=== PATIENT | female | born 1940 | race Asian ===

== ENCOUNTER 2021-04-23 12:02 | Observation (INO) | payer MEDICARE, OTHER ==
[2021-04-23] MEDS ORDERED: COZAAR 50MG50 MG/TAB PO (13:00)
[2021-04-23] MEDS ORDERED: JARDIANCE10 MG PO (13:00)
[2021-04-23] MEDS ORDERED: ZOLOFT 50MG50 MG PO (13:01)
[2021-04-23] MEDS ORDERED: ZOCOR40 M1 PO (13:01)
[2021-04-23] MEDS ORDERED: LEVOFLOXACIN500 M1 PO (13:01)
[2021-04-23 13:32] LABS: BASO # 0.04 (0.02-0.10); HEMATOCRIT 41.2 % (37.0-47.0); HEMOGLOBIN 13.1 g/dL (12.5-16.0); LYMPH# 0.63 (1.50-4.00); MEAN CELL VOLUME 92 fl (78-100); MEAN CORPUSCULAR HEMOGLOBIN 29 pg (27-31); MEAN CORPUSCULAR HGB CONC 32 g/dL (33-37); MEAN PLATELET VOLUME 9.9 fl (7.4-10.4); MONO # 0.91 (0.20-0.80); NEU # 9.42 (1.40-6.50); PLATELET COUNT 145 K/mm3 (130-400); RED BLOOD COUNT 4.46 M/mm3 (4.10-5.30); RED CELL DISTRIBUTION WIDTH 12.1 % (11.5-14.5)
[2021-04-23 13:41] LABS: ALBUMIN 3.9 g/dL (3.4-4.8); POTASSIUM 3.8 mmol/L (3.5-5.1)
[2021-04-23 13:42] LABS: URINE APPEARANCE HAZY; URINE COLOR YELLOW
[2021-04-23 13:42] LABS: CALCIUM 8.6 mg/dL (8.3-10.5)
[2021-04-23 13:43] LABS: URINE BILIRUBIN 1+ (NEGATIVE); URINE KETONE NEGATIVE (NEGATIVE); URINE PROTEIN(semi-quant) TRACE mg/dL (NEGATIVE); URINE UROBILINOGEN NORMAL (NORMAL)
[2021-04-23 13:43] LABS: TOTAL PROTEIN 6.6 g/dL (6.2-8.1)
[2021-04-23 13:44] LABS: URINE BLOOD TRACE (NEGATIVE); URINE LEUKOCYTE ESTERASE TRACE (NEGATIVE); URINE MUCUS PRESENT (NOT PRESENT); URINE NITRATE NEGATIVE (NEGATIVE)
[2021-04-23 13:45] LABS: TOTAL BILIRUBIN 0.8 mg/dL (0.2-1.2)
[2021-04-23 21:03] VITALS: BP 114/82
[2021-04-24 06:19] VITALS: BP 136/55
[2021-04-24 09:51] VITALS: BP 118/67
[2021-04-24 14:06] VITALS: BP 110/59
== END 2021-04-24 15:15 | disposition home or self-care (01) ==
LOC: ED 12:02 → MED/SURG 20:18
PROVIDERS: ADMIT Family Medicine
DX: K56.41 Fecal impaction (principal); R33.9 Retention of urine, unspecified; K64.4 Residual hemorrhoidal skin tags; A31.0 Pulmonary mycobacterial infection; E11.9 Type 2 diabetes mellitus without complications; I10 Essential (primary) hypertension; E78.5 Hyperlipidemia, unspecified; Z85.828 Personal history of other malignant neoplasm of skin; Z79.2 Long term (current) use of antibiotics; Z79.84 Long term (current) use of oral hypoglycemic drugs; Z79.899 Other long term (current) drug therapy
CPT/HCPCS: G0378; J3010

== ENCOUNTER → 2021-06-19 | Outpatient (CLI) | payer MEDICARE, OTHER ==
[~2021-06-19] MED LIST: COZAAR 50MG50 MG/TAB PO; JARDIANCE10 MG PO; LEVOFLOXACIN500 M1 PO; ZOCOR40 M1 PO; ZOLOFT 50MG50 MG PO
== END ==
LOC: AMSURD 08:54
DX: I44.0 Atrioventricular block, first degree (principal)

== ENCOUNTER → 2021-07-04 | Outpatient (CLI) | payer MEDICARE, OTHER | LOC: AMSURD 16:33 | DX: I49.3 Ventricular premature depolarization (principal) ==

== ENCOUNTER → 2021-07-06 | Outpatient (CLI) | payer MEDICARE, OTHER ==
[2021-07-06 17:19] LABS: BASO # 0.05 (0.02-0.10); EOS # 0.13 (0.04-0.40); EOS % 2.6 % (1.0-5.0); HEMATOCRIT 42.5 % (37.0-47.0); HEMOGLOBIN 13.2 g/dL (12.5-16.0); LYMPH# 2.02 (1.50-4.00); MEAN CELL VOLUME 95 fl (78-100); MEAN CORPUSCULAR HEMOGLOBIN 30 pg (27-31); MEAN CORPUSCULAR HGB CONC 31 g/dL (33-37); MEAN PLATELET VOLUME 10.6 fl (7.4-10.4); MONO # 0.39 (0.20-0.80); NEU # 2.37 (1.40-6.50); PLATELET COUNT 161 K/mm3 (130-400); RED BLOOD COUNT 4.46 M/mm3 (4.10-5.30); RED CELL DISTRIBUTION WIDTH 12.3 % (11.5-14.5)
[2021-07-06 17:23] LABS: ALBUMIN 3.9 g/dL (3.4-4.8)
[2021-07-06 17:24] LABS: POTASSIUM 3.7 mmol/L (3.5-5.1)
[2021-07-06 17:25] LABS: CALCIUM 9.1 mg/dL (8.3-10.5)
[2021-07-06 17:26] LABS: TOTAL PROTEIN 6.7 g/dL (6.2-8.1)
[2021-07-06 17:28] LABS: TOTAL BILIRUBIN 0.2 mg/dL (0.2-1.2)
[2021-07-06 17:32] LABS: MAGNESIUM 2.24 mg/dL (1.60-2.60)
== END ==
LOC: LAB 16:57
PROVIDERS: Internal Medicine
DX: E11.9 Type 2 diabetes mellitus without complications (principal); I10 Essential (primary) hypertension

== ENCOUNTER → 2021-07-07 | Outpatient (CLI) | payer MEDICARE, OTHER | LOC: RAD 12:45 | DX: I49.3 Ventricular premature depolarization (principal); I70.0 Atherosclerosis of aorta ==

== ENCOUNTER → 2021-08-01 | Outpatient (CLI) | payer MEDICARE, OTHER | LOC: CARDREHAB 08:01 | DX: G47.19 Other hypersomnia (principal) | CPT/HCPCS: G0399 ==

== ENCOUNTER → 2021-08-03 | Outpatient (CLI) | payer MEDICARE, OTHER | LOC: LAB 10:03 | DX: J47.9 Bronchiectasis, uncomplicated (principal) ==

== ENCOUNTER → 2021-09-29 | Outpatient (CLI) | payer MEDICARE, OTHER | LOC: LAB 08:49 | DX: J47.9 Bronchiectasis, uncomplicated (principal) ==

== ENCOUNTER → 2021-11-10 | Outpatient (CLI) | payer MEDICARE, OTHER ==
[~2021-11-10] MED LIST changes: +CEPHALEXIN500 M1 PO
[2021-11-10 15:48] LABS: URINE APPEARANCE HAZY; URINE COLOR YELLOW; URINE PROTEIN(semi-quant) 1+ (NEGATIVE)
[2021-11-10 15:49] LABS: URINE BILIRUBIN NEGATIVE (NEGATIVE); URINE BLOOD NEGATIVE (NEGATIVE); URINE KETONE NEGATIVE (NEGATIVE); URINE LEUKOCYTE ESTERASE TRACE (NEGATIVE); URINE NITRATE POSITIVE (NEGATIVE); URINE UROBILINOGEN NORMAL (NORMAL)
== END ==
LOC: LAB 14:28
PROVIDERS: Internal Medicine
DX: N39.0 Urinary tract infection, site not specified (principal)

== ENCOUNTER 2021-11-13 16:20 | Emergency (ER) | payer MEDICARE, OTHER ==
[~2021-11-13] VITALS: Ht 149.9 cm; Wt 51.2 kg
[~2021-11-13 16:20] MED LIST changes: -CEPHALEXIN500 M1 PO
[2021-11-13 17:18] LABS: BASO # 0.04 K/mm3 (0.02-0.10); EOS # 0.07 K/mm3 (0.04-0.40); EOS % 1.2 % (1.0-5.0); HEMATOCRIT 44.6 % (37.0-47.0); HEMOGLOBIN 14.4 g/dL (12.5-16.0); LYMPH# 2.72 K/mm3 (1.50-4.00); MEAN CELL VOLUME 92 fl (78-100); MEAN CORPUSCULAR HEMOGLOBIN 30 pg (27-31); MEAN CORPUSCULAR HGB CONC 32 g/dL (33-37); MEAN PLATELET VOLUME 10.7 fl (7.4-10.4); MONO # 0.32 K/mm3 (0.20-0.80); PLATELET COUNT 178 K/mm3 (130-400); RED BLOOD COUNT 4.84 M/mm3 (4.10-5.30); RED CELL DISTRIBUTION WIDTH 12.6 % (11.5-14.5); WHITE BLOOD COUNT 6.1 K/mm3 (4.8-10.8)
[2021-11-13 18:09] LABS: POTASSIUM 3.5 mmol/L (3.5-5.1)
[2021-11-13 18:10] LABS: CALCIUM 8.8 mg/dL (8.3-10.5)
[2021-11-13] MEDS ORDERED: CEPHALEXIN500 M1 PO (20:44)
[2021-11-13 21:01] VITALS: BP 146/75
== END 2021-11-13 21:01 | disposition home or self-care (01) ==
LOC: ED 16:20
PROVIDERS: Nurse Practitioner
DX: N39.0 Urinary tract infection, site not specified (principal); T36.8X5A Adverse effect of other systemic antibiotics, initial encounter; E11.9 Type 2 diabetes mellitus without complications; F32.A Depression, unspecified; F41.3 Other mixed anxiety disorders; Z79.899 Other long term (current) drug therapy
CPT/HCPCS: J0171; J0696; J1200; J2930; J3490; J7030

== ENCOUNTER → 2021-11-30 | Outpatient (CLI) | payer MEDICARE, OTHER ==
[~2021-11-30] MED LIST changes: +CEPHALEXIN500 M1 PO
[2021-11-30 09:42] LABS: BASO # 0.05 K/mm3 (0.02-0.10); EOS # 0.08 K/mm3 (0.04-0.40); EOS % 1.2 % (1.0-5.0); HEMATOCRIT 42.6 % (37.0-47.0); HEMOGLOBIN 13.7 g/dL (12.5-16.0); LYMPH# 1.49 K/mm3 (1.50-4.00); MEAN CELL VOLUME 94 fl (78-100); MEAN CORPUSCULAR HEMOGLOBIN 30 pg (27-31); MEAN CORPUSCULAR HGB CONC 32 g/dL (33-37); MEAN PLATELET VOLUME 10.5 fl (7.4-10.4); MONO # 0.51 K/mm3 (0.20-0.80); NEU # 4.27 K/mm3 (1.40-6.50); PLATELET COUNT 149 K/mm3 (130-400); RED BLOOD COUNT 4.54 M/mm3 (4.10-5.30); RED CELL DISTRIBUTION WIDTH 12.5 % (11.5-14.5); WHITE BLOOD COUNT 6.4 K/mm3 (4.8-10.8)
[2021-11-30 09:47] LABS: ALBUMIN 3.9 g/dL (3.4-4.8); POTASSIUM 4.5 mmol/L (3.5-5.1)
[2021-11-30 09:48] LABS: CALCIUM 9.3 mg/dL (8.3-10.5)
[2021-11-30 09:50] LABS: TOTAL PROTEIN 6.8 g/dL (6.2-8.1)
[2021-11-30 09:51] LABS: TOTAL BILIRUBIN 0.3 mg/dL (0.2-1.2)
[2021-11-30 10:38] LABS: URINE APPEARANCE HAZY; URINE COLOR YELLOW; URINE GLUCOSE 50 mg/dL (NEGATIVE); URINE PROTEIN(semi-quant) TRACE (NEGATIVE)
[2021-11-30 10:39] LABS: URINE BILIRUBIN NEGATIVE (NEGATIVE); URINE BLOOD TRACE (NEGATIVE); URINE KETONE NEGATIVE (NEGATIVE); URINE LEUKOCYTE ESTERASE TRACE (NEGATIVE); URINE NITRATE NEGATIVE (NEGATIVE); URINE UROBILINOGEN NORMAL (NORMAL)
[2021-11-30 10:40] LABS: URINE MUCUS PRESENT (NOT PRESENT)
[2021-11-30 10:52] LABS: ERYTHROCYTE SEDIMENTATION RATE 4 mm/hr (0-30)
== END ==
LOC: LAB 09:00
PROVIDERS: Internal Medicine
DX: E11.9 Type 2 diabetes mellitus without complications (principal); E78.2 Mixed hyperlipidemia; N39.0 Urinary tract infection, site not specified; J47.9 Bronchiectasis, uncomplicated; A31.0 Pulmonary mycobacterial infection; I49.3 Ventricular premature depolarization; I10 Essential (primary) hypertension; M85.80 Other specified disorders of bone density and structure, unspecified site; G47.33 Obstructive sleep apnea (adult) (pediatric)

== ENCOUNTER → 2021-12-06 | Outpatient (CLI) | payer MEDICARE, OTHER | LOC: MAMMO 15:58 | DX: M81.0 Age-related osteoporosis without current pathological fracture (principal) ==

== ENCOUNTER → 2021-12-26 | Outpatient (CLI) | payer MEDICARE, OTHER | LOC: RAD 10:25 | DX: M47.816 Spondylosis without myelopathy or radiculopathy, lumbar region (principal); M47.815 Spondylosis without myelopathy or radiculopathy, thoracolumbar region; M40.46 Postural lordosis, lumbar region; M19.90 Unspecified osteoarthritis, unspecified site; G95.19 Other vascular myelopathies ==

== ENCOUNTER → 2022-03-02 | Outpatient (CLI) | payer MEDICARE, OTHER ==
[2022-03-02 10:06] LABS: BASO # 0.06 K/mm3 (0.02-0.10); EOS # 0.22 K/mm3 (0.04-0.40); EOS % 3.7 % (1.0-5.0); HEMATOCRIT 42.6 % (37.0-47.0); HEMOGLOBIN 13.6 g/dL (12.5-16.0); LYMPH# 2.14 K/mm3 (1.50-4.00); MEAN CELL VOLUME 95 fl (78-100); MEAN CORPUSCULAR HEMOGLOBIN 30 pg (27-31); MEAN CORPUSCULAR HGB CONC 32 g/dL (33-37); MEAN PLATELET VOLUME 10.3 fl (7.4-10.4); MONO # 0.53 K/mm3 (0.20-0.80); NEU # 2.91 K/mm3 (1.40-6.50); PLATELET COUNT 156 K/mm3 (130-400); RED CELL DISTRIBUTION WIDTH 12.5 % (11.5-14.5); WHITE BLOOD COUNT 5.9 K/mm3 (4.8-10.8)
[2022-03-02 10:18] LABS: ALBUMIN 4.2 g/dL (3.4-4.8); POTASSIUM 4.5 mmol/L (3.5-5.1)
[2022-03-02 10:19] LABS: CALCIUM 9.6 mg/dL (8.3-10.5)
[2022-03-02 10:21] LABS: TOTAL PROTEIN 7.1 g/dL (6.2-8.1)
[2022-03-02 10:23] LABS: TOTAL BILIRUBIN 0.3 mg/dL (0.2-1.2)
== END ==
LOC: LAB 09:50
PROVIDERS: Internal Medicine
DX: E11.9 Type 2 diabetes mellitus without complications (principal); E78.2 Mixed hyperlipidemia; J47.9 Bronchiectasis, uncomplicated; A31.0 Pulmonary mycobacterial infection; I49.3 Ventricular premature depolarization; N39.0 Urinary tract infection, site not specified; I10 Essential (primary) hypertension; M85.80 Other specified disorders of bone density and structure, unspecified site; G47.33 Obstructive sleep apnea (adult) (pediatric)

== ENCOUNTER → 2022-03-28 | Outpatient (CLI) | payer MEDICARE, OTHER | LOC: LAB 11:22 | DX: J47.9 Bronchiectasis, uncomplicated (principal) ==

== ENCOUNTER → 2022-03-29 | Outpatient (CLI) | payer MEDICARE, OTHER ==
[2022-04-04 14:42] LABS: GRAM STAIN AMS
== END ==
LOC: LAB 13:12
PROVIDERS: Internal Medicine
DX: J47.9 Bronchiectasis, uncomplicated (principal)

== ENCOUNTER → 2022-03-30 | Outpatient (CLI) | payer MEDICARE, OTHER | LOC: LAB 16:06 | DX: J47.9 Bronchiectasis, uncomplicated (principal) ==

== ENCOUNTER → 2022-08-07 | Outpatient (CLI) | payer MEDICARE, OTHER ==
[2022-08-07 16:17] LABS: BASO # 0.06 K/mm3 (0.02-0.10); EOS # 0.27 K/mm3 (0.04-0.40); EOS % 4.1 % (1.0-5.0); HEMATOCRIT 41.9 % (37.0-47.0); HEMOGLOBIN 13.3 g/dL (12.5-16.0); LYMPH# 2.26 K/mm3 (1.50-4.00); MEAN CELL VOLUME 93 fl (78-100); MEAN CORPUSCULAR HEMOGLOBIN 30 pg (27-31); MEAN CORPUSCULAR HGB CONC 32 g/dL (33-37); MEAN PLATELET VOLUME 10.6 fl (7.4-10.4); NEU # 3.43 K/mm3 (1.40-6.50); PLATELET COUNT 168 K/mm3 (130-400); RED CELL DISTRIBUTION WIDTH 12.3 % (11.5-14.5); WHITE BLOOD COUNT 6.5 K/mm3 (4.8-10.8)
[2022-08-07 16:29] LABS: ALBUMIN 4.1 g/dL (3.4-4.8); POTASSIUM 3.9 mmol/L (3.5-5.1)
[2022-08-07 16:30] LABS: CALCIUM 9.7 mg/dL (8.3-10.5)
[2022-08-07 16:31] LABS: TOTAL PROTEIN 7.1 g/dL (6.2-8.1)
[2022-08-07 16:33] LABS: TOTAL BILIRUBIN 0.4 mg/dL (0.2-1.2)
[2022-08-07 16:38] LABS: MAGNESIUM 2.32 mg/dL (1.60-2.60)
== END ==
LOC: LAB 15:56
PROVIDERS: Internal Medicine
DX: I49.3 Ventricular premature depolarization (principal); J47.9 Bronchiectasis, uncomplicated; M85.80 Other specified disorders of bone density and structure, unspecified site; N39.0 Urinary tract infection, site not specified; K90.9 Intestinal malabsorption, unspecified; G47.33 Obstructive sleep apnea (adult) (pediatric); F41.8 Other specified anxiety disorders; I10 Essential (primary) hypertension; E78.2 Mixed hyperlipidemia; E11.9 Type 2 diabetes mellitus without complications; A31.0 Pulmonary mycobacterial infection

== ENCOUNTER → 2022-12-04 | Outpatient (CLI) | payer MEDICARE, OTHER ==
[2022-12-04 09:43] LABS: BASO # 0.05 K/mm3 (0.02-0.10); EOS # 0.15 K/mm3 (0.04-0.40); EOS % 3.3 % (1.0-5.0); HEMATOCRIT 42.9 % (37.0-47.0); HEMOGLOBIN 13.8 g/dL (12.5-16.0); LYMPH# 1.88 K/mm3 (1.50-4.00); MEAN CELL VOLUME 94 fl (78-100); MEAN CORPUSCULAR HEMOGLOBIN 30 pg (27-31); MEAN CORPUSCULAR HGB CONC 32 g/dL (33-37); MEAN PLATELET VOLUME 11.4 fl (7.4-10.4); MONO # 0.32 K/mm3 (0.20-0.80); PLATELET COUNT 143 K/mm3 (130-400); RED BLOOD COUNT 4.59 M/mm3 (4.10-5.30); RED CELL DISTRIBUTION WIDTH 12.3 % (11.5-14.5); WHITE BLOOD COUNT 4.5 K/mm3 (4.8-10.8)
[2022-12-04 09:49] LABS: ALBUMIN 4.2 g/dL (3.4-4.8); POTASSIUM 4.3 mmol/L (3.5-5.1)
[2022-12-04 09:50] LABS: CALCIUM 9.2 mg/dL (8.3-10.5)
[2022-12-04 09:51] LABS: TOTAL PROTEIN 6.9 g/dL (6.2-8.1)
[2022-12-04 09:53] LABS: TOTAL BILIRUBIN 0.6 mg/dL (0.2-1.2)
[2022-12-04 09:58] LABS: MAGNESIUM 2.24 mg/dL (1.60-2.60)
== END ==
LOC: LAB 09:13
PROVIDERS: Internal Medicine
DX: E78.2 Mixed hyperlipidemia (principal); E11.9 Type 2 diabetes mellitus without complications; I10 Essential (primary) hypertension

== ENCOUNTER → 2023-01-02 | Outpatient (CLI) | payer MEDICARE, OTHER | LOC: MAMMO 08:30 → RAD 08:30 | DX: M81.0 Age-related osteoporosis without current pathological fracture (principal); M85.80 Other specified disorders of bone density and structure, unspecified site ==

== ENCOUNTER → 2023-12-10 | Outpatient (CLI) | payer MEDICARE, OTHER ==
[2023-12-10 09:09] LABS: BASO # 0.05 K/mm3 (0.02-0.10); EOS # 0.16 K/mm3 (0.04-0.40); EOS % 4.3 % (1.0-5.0); HEMATOCRIT 37.9 % (37.0-47.0); LYMPH# 1.63 K/mm3 (1.50-4.00); MEAN CELL VOLUME 98 fl (78-100); MEAN CORPUSCULAR HEMOGLOBIN 31 pg (27-31); MEAN CORPUSCULAR HGB CONC 32 g/dL (33-37); MONO # 0.27 K/mm3 (0.20-0.80); NEU # 1.57 K/mm3 (1.40-6.50); PLATELET COUNT 140 K/mm3 (130-400); RED BLOOD COUNT 3.86 M/mm3 (4.10-5.30); RED CELL DISTRIBUTION WIDTH 13.4 % (11.5-14.5); WHITE BLOOD COUNT 3.7 K/mm3 (4.8-10.8)
[2023-12-10 09:21] LABS: CALCIUM 8.9 mg/dL (8.3-10.5)
[2023-12-10 09:23] LABS: TOTAL PROTEIN 6.7 g/dL (6.2-8.1)
[2023-12-10 09:24] LABS: TOTAL BILIRUBIN 0.3 mg/dL (0.2-1.2)
[2023-12-10 09:29] LABS: MAGNESIUM 2.21 mg/dL (1.60-2.60)
== END ==
LOC: LAB 08:42
PROVIDERS: Internal Medicine
DX: E11.9 Type 2 diabetes mellitus without complications (principal); I10 Essential (primary) hypertension; E78.2 Mixed hyperlipidemia

== ENCOUNTER → 2023-12-28 | Outpatient (REF) | payer MEDICARE, OTHER ==
[~2023-12-28] MED LIST changes: +GLIMEPIRIDE4 MG PO; +MACROBID 100 M100 MG PO; +PIOGLITAZONE HC30 MG PO; +ROSUVASTATIN CA10 MG PO
== END ==
LOC: LAB 17:07
DX: N39.0 Urinary tract infection, site not specified (principal)

== ENCOUNTER → 2024-03-06 | Outpatient (CLI) | payer MEDICARE, OTHER | LOC: RAD 16:19 | DX: M17.11 Unilateral primary osteoarthritis, right knee (principal); M25.511 Pain in right shoulder ==

== ENCOUNTER → 2024-04-14 | Outpatient (CLI) | payer MEDICARE, OTHER ==
[2024-04-14 11:04] LABS: BASO # 0.04 K/mm3 (0.02-0.10); EOS # 0.21 K/mm3 (0.04-0.40); EOS % 3.9 % (1.0-5.0); HEMATOCRIT 39.9 % (37.0-47.0); HEMOGLOBIN 12.8 g/dL (12.5-16.0); LYMPH# 1.85 K/mm3 (1.50-4.00); MEAN CELL VOLUME 96 fl (78-100); MEAN CORPUSCULAR HEMOGLOBIN 31 pg (27-31); MEAN CORPUSCULAR HGB CONC 32 g/dL (33-37); MEAN PLATELET VOLUME 10.4 fl (7.4-10.4); MONO # 0.43 K/mm3 (0.20-0.80); NEU # 2.78 K/mm3 (1.40-6.50); PLATELET COUNT 154 K/mm3 (130-400); RED BLOOD COUNT 4.16 M/mm3 (4.10-5.30); RED CELL DISTRIBUTION WIDTH 12.1 % (11.5-14.5); WHITE BLOOD COUNT 5.3 K/mm3 (4.8-10.8)
[2024-04-14 11:14] LABS: CALCIUM 8.9 mg/dL (8.3-10.5)
[2024-04-14 11:15] LABS: TOTAL PROTEIN 6.7 g/dL (6.2-8.1)
[2024-04-14 11:17] LABS: TOTAL BILIRUBIN 0.4 mg/dL (0.2-1.2)
[2024-04-14 11:22] LABS: MAGNESIUM 2.25 mg/dL (1.60-2.60)
== END ==
LOC: LAB 10:35
PROVIDERS: Internal Medicine
DX: E11.9 Type 2 diabetes mellitus without complications (principal); I10 Essential (primary) hypertension

== ENCOUNTER → 2024-07-27 | Outpatient (CLI) | payer MEDICARE, OTHER ==
[~2024-07-27] MED LIST changes: +ESCITALOPRAM10 MG PO
[2024-07-27 13:40] LABS: BASO # 0.03 K/mm3 (0.02-0.10); EOS # 0.17 K/mm3 (0.04-0.40); EOS % 3.7 % (1.0-5.0); HEMATOCRIT 35.7 % (37.0-47.0); HEMOGLOBIN 11.1 g/dL (12.5-16.0); LYMPH# 1.85 K/mm3 (1.50-4.00); MEAN CELL VOLUME 98 fl (78-100); MEAN CORPUSCULAR HEMOGLOBIN 31 pg (27-31); MEAN CORPUSCULAR HGB CONC 31 g/dL (33-37); MEAN PLATELET VOLUME 10.4 fl (7.4-10.4); NEU # 2.16 K/mm3 (1.40-6.50); PLATELET COUNT 156 K/mm3 (130-400); RED BLOOD COUNT 3.64 M/mm3 (4.10-5.30); RED CELL DISTRIBUTION WIDTH 13.9 % (11.5-14.5); WHITE BLOOD COUNT 4.6 K/mm3 (4.8-10.8)
[2024-07-27 13:47] LABS: ALBUMIN 3.9 g/dL (3.4-4.8)
[2024-07-27 13:48] LABS: CALCIUM 8.7 mg/dL (8.3-10.5)
[2024-07-27 13:49] LABS: TOTAL PROTEIN 6.5 g/dL (6.2-8.1)
[2024-07-27 13:51] LABS: TOTAL BILIRUBIN 0.3 mg/dL (0.2-1.2)
[2024-07-27 13:56] LABS: MAGNESIUM 2.3 mg/dL (1.60-2.60)
[2024-07-27 13:58] LABS: URINE APPEARANCE SLIGHTLY CLOUDY (CLEAR); URINE BILIRUBIN NEGATIVE (NEGATIVE); URINE BLOOD NEGATIVE (NEGATIVE); URINE COLOR YELLOW (YELLOW); URINE GLUCOSE TRACE (NEGATIVE); URINE KETONE NEGATIVE (NEGATIVE); URINE NITRATE POSITIVE (NEGATIVE); URINE PROTEIN(semi-quant) 2+ (NEGATIVE)
[2024-07-27 13:59] LABS: URINE LEUKOCYTE ESTERASE 1+ (NEGATIVE); URINE MUCUS PRESENT (NOT PRESENT); URINE WBC 31-50 /hpf (0-3)
[2024-07-27 23:56] LABS: PTH,INTACT 63.9 pg/mL (6.6-88.9)
== END ==
LOC: LAB 13:02
PROVIDERS: Internal Medicine
DX: E21.3 Hyperparathyroidism, unspecified (principal); E78.2 Mixed hyperlipidemia; I10 Essential (primary) hypertension; M81.0 Age-related osteoporosis without current pathological fracture; E11.9 Type 2 diabetes mellitus without complications; R20.2 Paresthesia of skin

== ENCOUNTER 2024-10-20 13:45 | Observation (INO) | payer MEDICARE, OTHER ==
[~2024-10-20] VITALS: Ht 152 cm; Wt 54.8 kg
[2024-10-20] MEDS ORDERED: Ondansetron 4 MG/2 ML VIAL IV ONE (14:00)
[2024-10-20] MEDS ORDERED: NS 500 ML IV SCH (14:00)
[2024-10-20 14:11] LABS: BASO # 0.06 K/mm3 (0.02-0.10); EOS # 0.19 K/mm3 (0.04-0.40); EOS % 3.4 % (1.0-5.0); HEMATOCRIT 38.5 % (37.0-47.0); HEMOGLOBIN 12.3 g/dL (12.5-16.0); LYMPH# 1.84 K/mm3 (1.50-4.00); MEAN CELL VOLUME 96 fl (78-100); MEAN CORPUSCULAR HEMOGLOBIN 31 pg (27-31); MEAN CORPUSCULAR HGB CONC 32 g/dL (33-37); MEAN PLATELET VOLUME 10.3 fl (7.4-10.4); MONO # 0.32 K/mm3 (0.20-0.80); PLATELET COUNT 151 K/mm3 (130-400); RED BLOOD COUNT 4.03 M/mm3 (4.10-5.30); RED CELL DISTRIBUTION WIDTH 12.5 % (11.5-14.5); WHITE BLOOD COUNT 5.7 K/mm3 (4.8-10.8)
[2024-10-20 14:17] LABS: SODIUM 138 mmol/L (136-145)
[2024-10-20 14:18] LABS: CALCIUM 9.2 mg/dL (8.3-10.5)
[2024-10-20 14:19] LABS: GLUCOSE 252 mg/dL (65-105); TOTAL PROTEIN 6.8 g/dL (6.2-8.1)
[2024-10-20 14:20] LABS: CARBON DIOXIDE 23 mmol/L (23-31)
[2024-10-20 14:21] LABS: TOTAL BILIRUBIN 0.3 mg/dL (0.2-1.2)
[2024-10-20 14:24] LABS: AST-SGOT 24 U/L (5-34)
[2024-10-20 14:25] LABS: ALT/SGPT 13 U/L (0-55); MAGNESIUM 2.02 mg/dL (1.60-2.60)
[2024-10-20 14:26] LABS: LIPASE 32 U/L (8-78)
[2024-10-20 14:33] LABS: TROPONIN-I < 0.030 ng/mL (0.00-0.033)
[2024-10-20] MEDS ORDERED: Potassium Chloride 100 ML IV SCH ×2 (14:45→16:45)
[2024-10-20] MEDS ORDERED: Dextrose (Glucose) 15 GM (4 x 3.75 GM) Chewable TAB PACK PO PRN (16:45)
[2024-10-20] MEDS ORDERED: Dextrose 50% Water 25 GM/50 ML SYRINGE IV PRN (16:45)
[2024-10-20] MEDS ORDERED: Ondansetron 4 MG/2 ML VIAL IV PRN (16:45)
[2024-10-20] MEDS ORDERED: Glucagon 1 MG VIAL IM PRN (16:45)
[2024-10-20] MEDS ORDERED: NS 1,000 ML IV SCH (17:15)
--- NOTE | 2024-10-20 17:45 | NUR ---
PT TRANSFERED TO MEDICAL FLOOR ROOM 208 VIA CART FROM ED. PT ALERT AND DISORIENTED. SPEECH DIFFICULT TO UNDERSTAND DUE TO CRYING. PT SEEN IN ED FOR NAUSEA, VOMITING AND DIARRHEA AND WEAKNESS. PT HAS BEEN INCONTINENT OF BOWEL AND BLADDER NOT PER BASELINE. ADMISSION DIAGNOSIS VIRAL GASTROENTERITIS. STOOL SAMPLE PENDING COLLECTION. PT WILL BE IN ISOLATION PENDING RESULTS OF STOOL CULTURE. TELE INITIATED DUE IV K+ REPLACEMENT IN PROCESS. PT HAS A HISTORY OF DM 2. ACCU CHECK AC/HS ORDERED. SKIN INTACT. NOTED LARGE YELLOWING BRUISE TO LEFT HIP. ADMISSION ASSESSMENTS COMPLETE. PT LIVES AT HOME ALONE. AT [facility] AND ABLE TO CARE FOR HERSELF. PT ORIENTED TO ROOM AND CALL LIGHT. BED ALARM ON AND SIDE RAILS UP X2.
[2024-10-20 18:07] VITALS: BP 156/69
[2024-10-20 19:00] VITALS: BP 156/72
[2024-10-20 20:29] LABS: URINE APPEARANCE CLOUDY (CLEAR); URINE COLOR YELLOW (YELLOW)
[2024-10-20 20:38] LABS: URINE BILIRUBIN NEGATIVE (NEGATIVE); URINE BLOOD NEGATIVE (NEGATIVE); URINE GLUCOSE 1+ (NEGATIVE); URINE KETONE NEGATIVE (NEGATIVE); URINE NITRATE NEGATIVE (NEGATIVE); URINE PROTEIN(semi-quant) 1+ (NEGATIVE)
[2024-10-20 20:42] LABS: URINE LEUKOCYTE ESTERASE NEGATIVE (NEGATIVE)
[2024-10-20] MEDS ORDERED: cefTRIAXone 1 G in Water For Injection,Sterile 10 ML IV SCH (22:00)
[2024-10-20 23:09] VITALS: BP 170/52
[2024-10-21 03:11] VITALS: BP 147/72
[2024-10-21 07:00] VITALS: BP 152/77
[2024-10-21] MEDS ORDERED: Pantoprazole 40 MG in NS 10 ML IV SCH (07:00)
[2024-10-21 07:33] LABS: BASO # 0.04 K/mm3 (0.02-0.10); EOS # 0.09 K/mm3 (0.04-0.40); EOS % 1.7 % (1.0-5.0); HEMATOCRIT 35.5 % (37.0-47.0); HEMOGLOBIN 11.6 g/dL (12.5-16.0); LYMPH# 1.63 K/mm3 (1.50-4.00); MEAN CELL VOLUME 95 fl (78-100); MEAN CORPUSCULAR HEMOGLOBIN 31 pg (27-31); MEAN CORPUSCULAR HGB CONC 33 g/dL (33-37); MONO # 0.33 K/mm3 (0.20-0.80); NEU # 3.27 K/mm3 (1.40-6.50); PLATELET COUNT 145 K/mm3 (130-400); RED BLOOD COUNT 3.73 M/mm3 (4.10-5.30); RED CELL DISTRIBUTION WIDTH 12.5 % (11.5-14.5); WHITE BLOOD COUNT 5.4 K/mm3 (4.8-10.8)
[2024-10-21 07:51] LABS: ALBUMIN 3.4 g/dL (3.4-4.8); CALCIUM 8.2 mg/dL (8.3-10.5)
[2024-10-21 07:52] LABS: TOTAL PROTEIN 5.9 g/dL (6.2-8.1)
[2024-10-21 07:55] LABS: TOTAL BILIRUBIN 0.3 mg/dL (0.2-1.2)
[2024-10-21] MEDS ORDERED: Glimepiride 2 MG TAB PO SCH (09:00)
--- NOTE | 2024-10-21 10:15 | NUR ---
Discuss discharge instructions with pt and NITIN. Both acknowledge understanding. Assist pt to dress, remove IV complete/intact. Pt belongings packed. Pt and belongings escorted from facility via WC. Pt instructed to hold diabetic medications until able to tolerate solid foods.
--- NOTE | 2024-10-21 10:39 | NUR ---
Hospital f/u appt made with Dr. Parada (PCP) for 10/26/24 at 10:15am.
== END 2024-10-21 10:15 | disposition home or self-care (01) ==
LOC: ED 13:45 → MED/SURG 16:15
PROVIDERS: Physician Assistant; ADMIT Family Medicine
DX: K52.9 Noninfective gastroenteritis and colitis, unspecified (principal); E87.6 Hypokalemia; E11.9 Type 2 diabetes mellitus without complications; Z66 Do not resuscitate
CPT/HCPCS: J0696; J1650; J2405; J2470; J3480; J7030; J7040

== ENCOUNTER → 2024-10-26 | Outpatient (CLI) | payer MEDICARE, OTHER ==
[2024-10-26 11:27] LABS: BASO # 0.05 K/mm3 (0.02-0.10); EOS # 0.24 K/mm3 (0.04-0.40); EOS % 5.6 % (1.0-5.0); HEMATOCRIT 40.8 % (37.0-47.0); LYMPH# 1.64 K/mm3 (1.50-4.00); MEAN CELL VOLUME 97 fl (78-100); MEAN CORPUSCULAR HEMOGLOBIN 31 pg (27-31); MEAN CORPUSCULAR HGB CONC 32 g/dL (33-37); MEAN PLATELET VOLUME 10.5 fl (7.4-10.4); MONO # 0.33 K/mm3 (0.20-0.80); NEU # 2.04 K/mm3 (1.40-6.50); PLATELET COUNT 185 K/mm3 (130-400); RED BLOOD COUNT 4.23 M/mm3 (4.10-5.30); RED CELL DISTRIBUTION WIDTH 12.3 % (11.5-14.5); WHITE BLOOD COUNT 4.3 K/mm3 (4.8-10.8)
[2024-10-26 11:36] LABS: ALBUMIN 4.2 g/dL (3.4-4.8)
[2024-10-26 11:37] LABS: CALCIUM 8.9 mg/dL (8.3-10.5)
[2024-10-26 11:39] LABS: TOTAL PROTEIN 7.1 g/dL (6.2-8.1)
[2024-10-26 11:40] LABS: TOTAL BILIRUBIN 0.4 mg/dL (0.2-1.2)
[2024-10-26 11:45] LABS: MAGNESIUM 2.14 mg/dL (1.60-2.60)
== END ==
LOC: LAB 11:14
PROVIDERS: Internal Medicine
DX: E11.9 Type 2 diabetes mellitus without complications (principal); I10 Essential (primary) hypertension

== ENCOUNTER → 2025-01-06 | Outpatient (CLI) | payer MEDICARE, OTHER | LOC: MAMMO 08:30 | DX: Z13.820 Encounter for screening for osteoporosis (principal); M85.851 Other specified disorders of bone density and structure, right thigh; M85.852 Other specified disorders of bone density and structure, left thigh ==